=== PATIENT | female | born 1990 | race African-American/Black ===

== ENCOUNTER 2022-11-06 02:02 | Emergency (ER) | payer OTHER, MEDICAID ==
[~2022-11-06] VITALS: Ht 162.6 cm; Wt 82.0 kg
[2022-11-06 02:11] VITALS: BP 165/114
[2022-11-06 03:28] LABS: HEMATOCRIT. 37.2 % (36.0-48.0); HEMOGLOBIN. 12.3 g/dL (12.0-16.0); MEAN CORPUSCULAR HEMOGLOBIN 26.7 pg (28.0-32.0); MEAN CORPUSCULAR VOLUME 80.7 fL (81.0-99.0); PLATELET 270 x1000/uL (130-400); RED BLOOD CELL COUNT 4.61 mill/uL (4.2-5.4); RED CELL DISTRIBUTION WIDTH 15.2 % (11.6-14.6)
[2022-11-06 03:39] LABS: CHLORIDE 106 mEq/L (98-107)
[2022-11-06 04:03] LABS: PLATELET ESTIMATE NORMAL
[2022-11-06] MEDS ORDERED: IOHEXOL-350 100 ML BOTTLE ONE (06:23)
== END 2022-11-06 07:04 | disposition home or self-care (01) ==
LOC: ER 02:02
DX: R07.89 Other chest pain (principal); D72.829 Elevated white blood cell count, unspecified; Z68.31 Body mass index [BMI] 31.0-31.9, adult
CPT/HCPCS: 36415; 71045; 71275; 80053; 84484; 85025; 85379; 93005; 99285; Q9967